=== PATIENT | male | born 1990 | race Hispanic/Latino ===

== ENCOUNTER 2017-03-30 19:34 | Emergency (ER) | payer SELFPAY ==
--- NOTE | 2017-03-30 23:06 | C.PDOC ---
History Of Present Illness 26 year old male is brought to the ED by EMS and [facility] escort for evaluation after he was found displaying bizarre public behavior after smoking PCP earlier today. Patient arrived to ED in handcuffs and has been cooperative with [facility]. Patient placed on 4 point restraints for his own safety and safety of staff. He denies suicidal/homicidal ideation and has no physical complaints at this time. Time Seen by Provider: 03/30/17 23:04 Chief Complaint (Nursing): Substance Abuse History Per: EMS History/Exam Limitations: no limitations Onset/Duration Of Symptoms: Hrs Current Symptoms Are (Timing): Still Present Suicide/Self Injury Attempted (Context): None Modifying Factor(s): Other (PCP) Associated Symptoms: Other (Bizarre behavior). denies: Depression, Suicidal Thoughts, Suicidal Plan Involuntary Hold By: None Recent travel outside of the [place]: No Past Medical History Reviewed: Historical Data, Nursing Documentation, Vital Signs Vital Signs: Last Vital Signs Temp 98.9 F 03/30/17 23:10 Pulse 81 03/30/17 23:10 Resp 20 03/30/17 23:10 BP 132/82 03/30/17 23:10 Pulse Ox 99 03/30/17 23:10 - Medical History PMH: No Chronic Diseases Surgical History: No Surg Hx - [facility] Procedures APPLICATION OF SPLINT (05/27/14) Family History: States: Unknown Family Hx - Social History Hx Tobacco Use: Yes Hx Alcohol Use: No Hx Substance Use: No - Immunization History Hx Tetanus Toxoid Vaccination: Yes ("last year") Hx Influenza Vaccination: Yes Hx Pneumococcal Vaccination: No Review Of Systems Constitutional: Negative for: Fever, Chills Respiratory: Negative for: Shortness of Breath, Wheezing Gastrointestinal: Negative for: Nausea, Vomiting, Diarrhea Skin: Negative for: Bruising Psych: Positive for: Other (Bizarre behavior) Physical Exam - Physical Exam Appears: Non-toxic, No Acute Distress Skin: Normal Color, Warm, Dry Head: Atraumatic, Normacephalic Eye(s): bilateral: Normal Inspection (Mid sized pupils), PERRL, EOMI Oral Mucosa: Moist Chest: Symmetrical, No Tenderness Cardiovascular: Rhythm Regular Respiratory: Normal Breath Sounds, No Rales, No Rhonchi, No Wheezing Gastrointestinal/Abdominal: Soft, No Tenderness Neurological/Psych: Other (Arousable to touch and verbal stimuli) ED Course And Treatment Reevaluation Time: 22:30 Reassessment Condition: Improved (mother came to retrieve and take home safely. admits to daily PCP abuse. Mother acknowledges she is enabling this poor behavior by taking him in with daily PCP abuse.) Medical Decision Making Medical Decision Making: continuous PCP abuse Disposition Doctor Will See Patient In The: Office Counseled Patient/Family Regarding: Studies Performed, Diagnosis - Disposition Referrals: Alcoholics Anonymous [Outside] [facility] [Outside] [place] [facility] [Outside] Disposition: HOME/ ROUTINE Disposition Time: 23:05 Condition: GOOD Additional Instructions: seek detox and psych eval for your PCP abuse Stop PCP abuse Seek counseling and a social [place] where substance abuse is not prevalent. Instructions: Acute Delirium (ED), Polysubstance Abuse (ED) Forms: [facility] (Burkinan) - Clinical Impression Clinical Impression: Drug abuse - Scribe Statement The provider has reviewed the documentation as recorded by the Scribe Jos Beauchamp All medical record entries made by the Scribe were at my direction and personally dictated by me. I have reviewed the chart and agree that the record accurately reflects my personal performance of the history, physical exam, medical decision making, and the department course for this patient. I have also personally directed, reviewed, and agree with the discharge instructions and disposition.
[2017-03-30 23:10] VITALS: BP 132/82; PULSE 81; RESP 20; TEMP 98.9; O2SAT 99
== END 2017-03-30 23:23 | disposition home or self-care (01) ==
LOC: C.ER 19:34
DX: F19.10 Other psychoactive substance abuse, uncomplicated (principal)

== ENCOUNTER 2017-07-14 20:08 | Emergency (ER) | payer SELFPAY ==
[2017-07-14 20:14] VITALS: O2SAT 99
[2017-07-14 20:26] VITALS: BP 123/89; PULSE 111; RESP 16; TEMP 97.3
--- NOTE | 2017-07-14 20:38 | C.PDOC ---
History Of Present Illness Patient brought to ER by EMS after patient was found exhibiting bizarre behavior ; patient was noted to be sitting in neighbor's backyard and was non-compliant with police orders. Patient admits to "smoking sip" and currently is cooperative in ER. He has no medical complaints. Time Seen by Provider: 07/14/17 20:37 Chief Complaint (Nursing): Substance Abuse History Per: EMS History/Exam Limitations: no limitations Onset/Duration Of Symptoms: Hrs Past Medical History Reviewed: Historical Data, Nursing Documentation, Vital Signs Vital Signs: Last Vital Signs Temp 97.3 F L 07/14/17 20:24 Pulse 111 H 07/14/17 20:24 Resp 16 07/14/17 20:24 BP 123/89 07/14/17 20:24 Pulse Ox 99 07/14/17 20:38 - Medical History PMH: No Chronic Diseases Surgical History: No Surg Hx - [facility] Procedures APPLICATION OF SPLINT (05/27/14) Family History: States: Unknown Family Hx - Social History Hx Tobacco Use: Yes Hx Alcohol Use: No Hx Substance Use: No - Immunization History Hx Tetanus Toxoid Vaccination: Yes ("last year") Hx Influenza Vaccination: Yes Hx Pneumococcal Vaccination: No Review Of Systems Except As Marked, All Systems Reviewed And Found Negative. Neurological: Positive for: Other (bizarre behaviour) Physical Exam - Physical Exam Appears: Non-toxic Skin: Normal Color Head: Normacephalic Eye(s): bilateral: Normal Inspection Neck: Normal ROM, Supple Chest: Symmetrical Cardiovascular: Rhythm Regular Respiratory: Normal Breath Sounds Neurological/Psych: Oriented x3, Normal Speech, Normal Cognition, Other (flat affect, pleasant in ER) Gait: Steady ED Course And Treatment O2 Sat by Pulse Oximetry: 99 (RA) Pulse Ox Interpretation: Normal Medical Decision Making Medical Decision Making: smoking Dip stable, comfortable, cooperative, no acute issues, steady gait, safe for d/c. Disposition Doctor Will See Patient In The: Office Counseled Patient/Family Regarding: Studies Performed, Diagnosis - Disposition Referrals: Alcoholics Anonymous [Outside] [place] [facility] [Outside] [facility] [Outside] [facility] [Outside] Disposition: HOME/ ROUTINE Disposition Time: 20:38 Condition: GOOD Additional Instructions: avoid substance abuse seek outpatient follow up as offered See below. Instructions: Drug Abuse and Drug Addiction (DC), Drug Abuse Treatment Forms: [facility] (Belarusian) - Clinical Impression Clinical Impression: Substance abuse - Scribe Statement The provider has reviewed the documentation as recorded by the Scribe (Sussy Nolan) Provider Attestation: All medical record entries made by the Scribe were at my direction and personally dictated by me. I have reviewed the chart and agree that the record accurately reflects my personal performance of the history, physical exam, medical decision making, and the department course for this patient. I have also personally directed, reviewed, and agree with the discharge instructions and disposition.
== END 2017-07-14 21:14 | disposition home or self-care (01) ==
LOC: C.ER 20:08
DX: F19.10 Other psychoactive substance abuse, uncomplicated (principal)

== ENCOUNTER 2017-09-12 12:43 | Emergency (ER) | payer MEDICAID ==
[2017-09-12 12:54] VITALS: BP 144/92; PULSE 82; RESP 18; TEMP 98.2; O2SAT 100
[2017-09-12 12:58] VITALS: BMI 23.1
--- NOTE | 2017-09-12 13:17 | C.PDOC ---
History Of Present Illness 27 y/o male brought to ED by EMS for bizarre behavior, admits to smoking marijuana prior to arrival. Patient was previously evaluated at [place] on 08/22 for same and discharged. Patient denies chest pain, sob, palpitations, nausea, vomiting or any other complaints at this time. Time Seen by Provider: 09/12/17 13:14 Chief Complaint (Nursing): Altered Mental Status History Per: Patient History/Exam Limitations: None Onset/Duration Of Symptoms: Hrs Current Symptoms Are (Timing): Still Present Past Medical History Reviewed: Historical Data, Nursing Documentation, Vital Signs Vital Signs: Last Vital Signs Temp 98.2 F 09/12/17 12:48 Pulse 82 09/12/17 12:48 Resp 18 09/12/17 12:48 BP 144/92 H 09/12/17 12:48 Pulse Ox 100 09/12/17 14:02 - Medical History PMH: No Chronic Diseases Surgical History: No Surg Hx - [facility] Procedures APPLICATION OF SPLINT (05/27/14) Family History: States: No Known Family Hx - Social History Hx Tobacco Use: Yes Hx Alcohol Use: No Hx Substance Use: No (pt denies substance abuse) - Immunization History Hx Tetanus Toxoid Vaccination: Yes ("last year") Hx Influenza Vaccination: Yes Hx Pneumococcal Vaccination: No Review Of Systems Constitutional: Negative for: Fever, Chills Eyes: Negative for: Vision Change Cardiovascular: Negative for: Chest Pain Respiratory: Negative for: Shortness of Breath Skin: Negative for: Rash Psych: Negative for: Anxiety, Psychosis Physical Exam - Physical Exam Appears: Non-toxic, No Acute Distress Skin: Warm, Dry, No Rash Head: Atraumatic, Normacephalic Eye(s): bilateral: Normal Inspection Oral Mucosa: Moist Neck: Normal ROM, Supple Cardiovascular: Rhythm Regular Respiratory: Normal Breath Sounds, No Rales, No Rhonchi, No Wheezing Gastrointestinal/Abdominal: Soft, No Tenderness, No Guarding, No Rebound Extremity: Normal ROM, Capillary Refill (<2 seconds) Neurological/Psych: Oriented x3, Normal Speech, Normal Cognition ED Course And Treatment O2 Sat by Pulse Oximetry: 100 (RA) Pulse Ox Interpretation: Normal Medical Decision Making Medical Decision Making: persistent cannabis abuse no acute issues safe for d/c Disposition Doctor Will See Patient In The: Office Counseled Patient/Family Regarding: Studies Performed, Diagnosis - Disposition Referrals: Alcoholics Anonymous [Outside] [place] [facility] [Outside] [facility] [Outside] [facility] [employer] [facility] [Outside] Disposition: HOME/ ROUTINE Disposition Time: 13:17 Condition: GOOD Additional Instructions: seek substance abuse programs as needed Seek outpatient psych follow-up as needed STOP SUBSTANCE ABUSE Instructions: Drug Abuse and Drug Addiction (DC), Drug Abuse Treatment Forms: [facility] (Mohawk) - Clinical Impression Clinical Impression: Substance abuse - Scribe Statement The provider has reviewed the documentation as recorded by the Scribamanda Swan All medical record entries made by the Scribe were at my direction and personally dictated by me. I have reviewed the chart and agree that the record accurately reflects my personal performance of the history, physical exam, medical decision making, and the department course for this patient. I have also personally directed, reviewed, and agree with the discharge instructions and disposition.
== END 2017-09-12 13:36 | disposition home or self-care (01) ==
LOC: C.ER 12:43
DX: F12.10 Cannabis abuse, uncomplicated (principal)

== ENCOUNTER 2017-09-17 10:54 | Emergency (ER) | payer MEDICAID ==
[2017-09-17 10:54] VITALS: BMI 23.1
[2017-09-17 11:02] VITALS: BP 144/84; PULSE 78; RESP 18; TEMP 98.2; O2SAT 98
--- NOTE | 2017-09-17 11:36 | C.PDOC ---
History Of Present Illness 27 year old male is brought to the ED by ambulance for evaluation of possible drug use and bizarre behavior. As per EMS, patient's mother called police with the complaint that he was "acting up." Patient admits to history of PCP use. He denies suicidal/homicidal ideation, any other drug, and has no other complaints at this time. Time Seen by Provider: 09/17/17 11:01 Chief Complaint (Nursing): Substance Abuse History Per: Patient, EMS History/Exam Limitations: no limitations Onset/Duration Of Symptoms: Hrs Current Symptoms Are (Timing): Still Present Suicide/Self Injury Attempted (Context): None Modifying Factor(s): Other (PCP ) Associated Symptoms: denies: Suicidal Thoughts, Suicidal Plan Involuntary Hold By: None Recent travel outside of the [place]: No Additional History Per: Patient, EMS, Law Enforcement Past Medical History Reviewed: Historical Data, Nursing Documentation, Vital Signs Vital Signs: Last Vital Signs Temp 98.2 F 09/17/17 11:01 Pulse 78 09/17/17 11:01 Resp 18 09/17/17 11:40 BP 144/84 09/17/17 11:01 Pulse Ox 98 09/17/17 15:10 - Medical History PMH: No Chronic Diseases Denies: Chronic Kidney Disease Surgical History: No Surg Hx - [facility] Procedures APPLICATION OF SPLINT (05/27/14) Family History: States: Unknown Family Hx - Social History Hx Tobacco Use: Yes Hx Alcohol Use: No Hx Substance Use: No (pt denies substance abuse) - Immunization History Hx Tetanus Toxoid Vaccination: Yes ("last year") Hx Influenza Vaccination: Yes Hx Pneumococcal Vaccination: No Review Of Systems Psych: Positive for: Other (drug use, bizarre behavior ). Negative for: Suicidal ideation Physical Exam - Physical Exam Appears: Non-toxic, No Acute Distress Skin: Normal Color, Warm, Dry Head: Atraumatic, Normacephalic Eye(s): bilateral: Other (pinpoint pupils) Oral Mucosa: Moist Neck: Supple Chest: Symmetrical, No Deformity, No Tenderness Cardiovascular: Rhythm Regular, No Murmur Respiratory: Normal Breath Sounds, No Rales, No Rhonchi, No Wheezing Extremity: Normal ROM, Capillary Refill (less than 2 seconds ) Neurological/Psych: Oriented x3, Normal Speech, Normal Cognition, Other (calm, cooperative, maintaining eye contact ) ED Course And Treatment O2 Sat by Pulse Oximetry: 98 (on RA) Pulse Ox Interpretation: Normal Medical Decision Making Medical Decision Making: Impression: 27 year old male for evaluation of drug use and bizarre behavior Progress: Spoke with patient's mother who called the ED to inquire about a detox program on behalf of the patient. Explained to mother that there is a waiting list for detox. On re-exam, patient is resting comfortably, showing no signs of distress and is stable for discharge. Patient is provided with information for further detox inquiries. Disposition Counseled Patient/Family Regarding: Diagnosis, Need For Followup - Disposition Disposition: HOME/ ROUTINE Disposition Time: 11:35 Condition: STABLE Instructions: Drug Abuse and Drug Addiction (DC) Forms: [facility] (Iranian) - POA Present On Arrival: None - Clinical Impression Clinical Impression: Substance abuse - PA / TAFFY PULLER / Resident Statement MD/DO has reviewed & agrees with the documentation as recorded. - Scribe Statement The provider has reviewed the documentation as recorded by the Scribe (Consuelo Will) All medical record entries made by the Scribe were at my direction and personally dictated by me. I have reviewed the chart and agree that the record accurately reflects my personal performance of the history, physical exam, medical decision making, and the department course for this patient. I have also personally directed, reviewed, and agree with the discharge instructions and disposition.
== END 2017-09-17 11:42 | disposition home or self-care (01) ==
LOC: C.ER 10:54
DX: F19.10 Other psychoactive substance abuse, uncomplicated (principal)

== ENCOUNTER 2017-11-04 02:00 | Emergency (ER) | payer MEDICAID ==
[2017-11-04 02:01] VITALS: BMI 23.1
[2017-11-04 02:12] VITALS: BP 135/76; PULSE 81; RESP 16; TEMP 98.3; O2SAT 97
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
== END 2017-11-04 03:17 | disposition home or self-care (01) ==
LOC: C.ER 02:00
DX: Z00.00 Encounter for general adult medical examination without abnormal findings (principal); Z72.0 Tobacco use

== ENCOUNTER 2017-11-28 10:18 | Emergency (ER) | payer MEDICAID ==
[2017-11-28 10:19] VITALS: BMI 23.1
[2017-11-28 10:28] VITALS: BP 140/92; PULSE 108; RESP 20; TEMP 98.4; O2SAT 100
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
== END 2017-11-28 11:02 | disposition home or self-care (01) ==
LOC: C.ER 10:18
DX: H57.8 Other specified disorders of eye and adnexa (principal)

== ENCOUNTER 2017-12-08 20:11 | Emergency (ER) | payer MEDICAID ==
[2017-12-08 20:11] VITALS: BMI 23.1
[2017-12-08 20:20] VITALS: BP 141/93; PULSE 102; RESP 20; TEMP 99.1; O2SAT 99
--- NOTE | 2017-12-08 20:34 | C.PDOC ---
History Of Present Illness 27 year old male is brought to the ED by ambulance for evaluation of bizarre public behavior noted earlier today. Patient has had many prior evaluations concerning substance abuse. Patient admits to occasional PCP use. He denies suicidal/homicidal ideation and has no physical complaints at this time. Chief Complaint (Nursing): Substance Abuse History Per: Patient, EMS History/Exam Limitations: no limitations Onset/Duration Of Symptoms: Hrs Current Symptoms Are (Timing): Still Present Suicide/Self Injury Attempted (Context): None Associated Symptoms: denies: Suicidal Thoughts, Suicidal Plan Involuntary Hold By: None Additional History Per: Patient Past Medical History Reviewed: Historical Data, Nursing Documentation, Vital Signs Vital Signs: Last Vital Signs Temp 99.1 F 12/08/17 20:15 Pulse 102 H 12/08/17 20:15 Resp 20 12/08/17 20:15 BP 141/93 H 12/08/17 20:15 Pulse Ox 99 12/08/17 21:45 - Medical History PMH: No Chronic Diseases Denies: Chronic Kidney Disease Surgical History: No Surg Hx - [facility] Procedures APPLICATION OF SPLINT (05/27/14) Family History: States: Unknown Family Hx - Social History Hx Tobacco Use: Yes Hx Alcohol Use: No Hx Substance Use: No (pt denies substance abuse) - Immunization History Hx Tetanus Toxoid Vaccination: No Hx Influenza Vaccination: No Hx Pneumococcal Vaccination: No Review Of Systems Psych: Positive for: Other (bizarre behavior ). Negative for: Suicidal ideation Physical Exam - Physical Exam Appears: Non-toxic, No Acute Distress Skin: Normal Color, Warm, Dry Head: Atraumatic, Normacephalic Eye(s): bilateral: Normal Inspection Oral Mucosa: Moist Neck: Supple Chest: Symmetrical, No Deformity Cardiovascular: Rhythm Regular Respiratory: Normal Breath Sounds, No Accessory Muscle Use Extremity: Normal ROM Neurological/Psych: Other (calm, cooperative, bizarre affect ) Gait: Steady ED Course And Treatment O2 Sat by Pulse Oximetry: 99 (on RA) Pulse Ox Interpretation: Normal Medical Decision Making Medical Decision Making: typical substance abuse stable gait answered all questions correctly no harm to self or others. wanted to be d/c and no need to restrain Disposition Doctor Will See Patient In The: Office Counseled Patient/Family Regarding: Studies Performed, Diagnosis - Disposition Referrals: [facility] [Outside] [place] [facility] [Outside] [facility] [Outside] [facility] [Outside] Disposition: HOME/ ROUTINE Disposition Time: 20:15 Condition: GOOD Additional Instructions: avoid substance abuse Seek outpatient counseling Instructions: Drug Abuse and Drug Addiction (DC), Drug Abuse Treatment Forms: [facility] (Moldovan) - Clinical Impression Clinical Impression: Drug abuse - Scribe Statement The provider has reviewed the documentation as recorded by the Scribe (Consuelo Will) Provider Attestation: All medical record entries made by the Scribe were at my direction and personally dictated by me. I have reviewed the chart and agree that the record accurately reflects my personal performance of the history, physical exam, medical decision making, and the department course for this patient. I have also personally directed, reviewed, and agree with the discharge instructions and disposition.
== END 2017-12-08 20:25 | disposition home or self-care (01) ==
LOC: C.ER 20:11
DX: F19.10 Other psychoactive substance abuse, uncomplicated (principal)

== ENCOUNTER 2017-12-26 15:39 | Emergency (ER) | payer MEDICAID ==
[2017-12-26 15:40] VITALS: BMI 23.1
[2017-12-26 17:06] LABS: OPIATES, UR NEGATIVE (NEGATIVE); PHENCYCLIDINE, UR NEGATIVE (NEGATIVE)
[2017-12-26 17:07] LABS: BARBITURATES, UR NEGATIVE (NEGATIVE); BENZODIAZEPINES, UR NEGATIVE (NEGATIVE)
[2017-12-26 17:38] VITALS: BP 140/79; PULSE 92; RESP 18; TEMP 98.5; O2SAT 100
--- NOTE | 2017-12-26 18:08 | C.PDOC ---
History Of Present Illness 27-year-old male, presents to the emergency department accompanied by PD and EMS , with complaints of erratic behavior. Pt has a Hx of drug abuse, denies any drug use at this time. Denies SI/HI, or any other associated symptoms. No other complaints at this time. Chief Complaint (Nursing): Substance Abuse History Per: Patient, EMS (PD) History/Exam Limitations: no limitations Past Medical History Reviewed: Historical Data, Nursing Documentation, Vital Signs Vital Signs: Last Vital Signs Temp 98.5 F 12/26/17 17:37 Pulse 92 H 12/26/17 17:37 Resp 18 12/26/17 17:37 BP 140/79 12/26/17 17:37 Pulse Ox 100 12/26/17 18:24 - Medical History PMH: Denies: Chronic Kidney Disease - [facility] Procedures APPLICATION OF SPLINT (05/27/14) Family History: States: No Known Family Hx - Social History Hx Tobacco Use: Yes Hx Alcohol Use: No Hx Substance Use: No ("pt denies") - Immunization History Hx Tetanus Toxoid Vaccination: No Hx Influenza Vaccination: No Hx Pneumococcal Vaccination: No Review Of Systems Constitutional: Negative for: Fever Cardiovascular: Negative for: Chest Pain Respiratory: Negative for: Shortness of Breath Gastrointestinal: Negative for: Vomiting Musculoskeletal: Negative for: Back Pain Neurological: Negative for: Weakness, Numbness, Headache, Dizziness Physical Exam - Physical Exam Appears: Non-toxic, No Acute Distress Skin: Normal Color, Warm, Dry, No Rash Head: Atraumatic, Normacephalic Eye(s): bilateral: Normal Inspection, PERRL, EOMI Nose: Normal Oral Mucosa: Moist Lips: Normal Appearing Neck: Normal ROM Cardiovascular: Rhythm Regular, No Murmur Respiratory: Normal Breath Sounds, No Accessory Muscle Use Gastrointestinal/Abdominal: Normal Exam Back: Normal Inspection Extremity: Normal ROM, No Deformity, No Swelling Neurological/Psych: Oriented x3, Normal Speech ED Course And Treatment O2 Sat by Pulse Oximetry: 100 Pulse Ox Interpretation: Normal (RA) Disposition - Disposition Disposition: HOME/ ROUTINE Disposition Time: 17:10 Condition: GOOD Additional Instructions: VERONA ALVARADO, thank you for letting us take care of you today. The emergency medical care you received today was directed at your acute symptoms. If you were prescribed any medication, please fill it and take as directed. It may take several days for your symptoms to resolve. Return to the Emergency Department if your symptoms worsen, do not improve, or if you have any other problems. Please contact your doctor or call one of the physicians/clinics you have been referred to that are listed on the Patient Visit Information form that is included in your discharge packet. Bring any paperwork you were given at discharge with you along with any medications you are taking to your follow up visit. Our treatment cannot replace ongoing medical care by a primary care provider outside of the emergency department. Thank you for allowing the [facility] team to be part of your care today. Follow up with your primary care doctor in 2-3 days for further management. Instructions: Marijuana Use and Addiction (DC) Forms: [employer] (Chilean) - Clinical Impression Clinical Impression: Marijuana smoker - Scribe Statement The provider has reviewed the documentation as recorded by the Scribe (Kurtis Lopez) Provider Attestation: All medical record entries made by the Scribe were at my direction and personally dictated by me. I have reviewed the chart and agree that the record accurately reflects my personal performance of the history, physical exam, medical decision making, and the department course for this patient. I have also personally directed, reviewed, and agree with the discharge instructions and disposition.
== END 2017-12-26 17:45 | disposition home or self-care (01) ==
LOC: C.ER 15:39
DX: F12.90 Cannabis use, unspecified, uncomplicated (principal); Z72.0 Tobacco use

== ENCOUNTER 2017-12-31 23:30 | Emergency (ER) | payer MEDICAID ==
[2017-12-31 23:31] VITALS: BMI 23.1
[2017-12-31 23:59] VITALS: BP 147/93; PULSE 89; RESP 20; TEMP 98.2; O2SAT 99
--- NOTE | 2018-01-01 00:07 | C.PDOC ---
History Of Present Illness 27 year old male is brought to the ED for evaluation. Patient was drinking today , however patient is clinically sober, ambulating without difficulty in the ED. Patient states he wants to go home and refuses to be examined. On observation patient moves all extremities, no signs of trauma. Patient denies SI/HI, hallucinations, injury, fall, trauma. Time Seen by Provider: 12/31/17 23:48 Chief Complaint (Nursing): Substance Abuse History Per: Patient History/Exam Limitations: no limitations Onset/Duration Of Symptoms: Hrs Current Symptoms Are (Timing): Still Present Suicide/Self Injury Attempted (Context): None Modifying Factor(s): Alcohol Associated Symptoms: denies: Depression, Suicidal Thoughts, Suicidal Plan Involuntary Hold By: None Recent travel outside of the [place]: No Additional History Per: Patient Past Medical History Reviewed: Historical Data, Nursing Documentation, Vital Signs Vital Signs: Last Vital Signs Temp 98.2 F 12/31/17 23:54 Pulse 89 12/31/17 23:54 Resp 20 12/31/17 23:54 BP 147/93 H 12/31/17 23:54 Pulse Ox 99 01/01/18 00:10 - Medical History PMH: No Chronic Diseases Denies: Chronic Kidney Disease Surgical History: No Surg Hx - [facility] Procedures APPLICATION OF SPLINT (05/27/14) Family History: States: Unknown Family Hx - Social History Hx Tobacco Use: Yes Hx Alcohol Use: No (denies) Hx Substance Use: No ("pt denies") - Immunization History Hx Tetanus Toxoid Vaccination: No Hx Influenza Vaccination: No Hx Pneumococcal Vaccination: No Review Of Systems Constitutional: Negative for: Fever, Chills Cardiovascular: Negative for: Chest Pain, Palpitations Respiratory: Negative for: Shortness of Breath Gastrointestinal: Negative for: Nausea, Vomiting Skin: Negative for: Rash Psych: Negative for: Depression, Suicidal ideation Physical Exam - Physical Exam Appears: Non-toxic, No Acute Distress Skin: Normal Color, Warm, Dry Head: Atraumatic, Normacephalic Extremity: Normal ROM, No Tenderness, No Swelling Neurological/Psych: Oriented x3, Normal Speech Gait: Steady Additional Physical Exam Comments: Patient refused to be examined ED Course And Treatment O2 Sat by Pulse Oximetry: 99 (ON RA) Pulse Ox Interpretation: Normal Progress Note: Patient eloped from the ED, patient was clinically sober and ambulating with no difficulty. Disposition Counseled Patient/Family Regarding: Diagnosis, Need For Followup - Disposition Referrals: [facility] [Outside] Disposition: ELOPEMENT - ER ONLY Disposition Time: 16:00 Condition: FAIR Instructions: Alcohol Abuse and Alcoholism (DC) Forms: [employer] (Spanish) - Clinical Impression Clinical Impression: Substance abuse - Scribe Statement The provider has reviewed the documentation as recorded by the Scribe Cody Aponte All medical record entries made by the Scribe were at my direction and personally dictated by me. I have reviewed the chart and agree that the record accurately reflects my personal performance of the history, physical exam, medical decision making, and the department course for this patient. I have also personally directed, reviewed, and agree with the discharge instructions and disposition.
== END 2018-01-01 00:08 | disposition left against medical advice (07) ==
LOC: C.ER 23:30
DX: F19.10 Other psychoactive substance abuse, uncomplicated (principal)

== ENCOUNTER 2018-09-24 20:24 | Emergency (ER) | payer MEDICAID, OTHER ==
[2018-09-24 20:25] VITALS: BMI 23.7
[2018-09-24 20:34] VITALS: BP 112/69; PULSE 72; TEMP 97.8; O2SAT 95
--- NOTE | 2018-09-24 20:52 | C.PDOC ---
Time Seen by Provider: 09/24/18 20:36 Chief Complaint (Nursing): Eye Problem Past Medical History Vital Signs: Last Vital Signs Temp 97.8 F 09/24/18 20:29 Pulse 72 09/24/18 20:29 Resp 18 09/24/18 20:29 BP 112/69 09/24/18 20:29 Pulse Ox 95 09/24/18 20:29 Primary Care Provider: FAMILY PROVIDER,NO - Medical History PMH: Denies: Diabetes, Hepatitis, HIV, HTN, Chronic Kidney Disease, Seizures, Sexually Transmitted Disease - [facility] Procedures APPLICATION OF SPLINT (05/27/14) Family History: States: Unknown Family Hx - Social History Hx Tobacco Use: Yes Hx Alcohol Use: No (denies) Hx Substance Use: No ("pt denies") - Immunization History Hx Tetanus Toxoid Vaccination: No Hx Influenza Vaccination: No Hx Pneumococcal Vaccination: No ED Course And Treatment O2 Sat by Pulse Oximetry: 95 Disposition - Disposition
[2018-09-24] MEDS ORDERED: Fluorescein 1 mg Ophthalmic Strip ONE (21:00)
--- NOTE | 2018-09-24 21:23 | C.PDOC ---
History Of Present Illness 28 year old male presents complaining of foreign body sensation to the right eye since last night. Patient reports he has been rubbing it today. He reports associated tearing, redness, and notes he is unable to fully open the eye due to swelling. Denies headache, dizziness, or photophobia. Time Seen by Provider: 09/24/18 20:36 Chief Complaint (Nursing): Eye Problem History Per: Patient History/Exam Limitations: no limitations Onset/Duration Of Symptoms: Other (Last night) Current Symptoms Are (Timing): Still Present Injury To Eye?: No Wears Contact Lens?: No Associated Symptoms: Swelling, FB Sensation, Other (Tearing, Redness) Past Medical History Reviewed: Historical Data, Nursing Documentation, Vital Signs Vital Signs: Last Vital Signs Temp 97.8 F 09/24/18 20:29 Pulse 72 09/24/18 20:29 Resp 18 09/24/18 20:29 BP 112/69 09/24/18 20:29 Pulse Ox 95 09/24/18 21:07 Primary Care Provider: FAMILY PROVIDER,NO - Medical History PMH: Denies: Diabetes, Hepatitis, HIV, HTN, Chronic Kidney Disease, Seizures, Sexually Transmitted Disease - [facility] Procedures APPLICATION OF SPLINT (05/27/14) Family History: States: Unknown Family Hx - Social History Hx Tobacco Use: Yes Hx Alcohol Use: No (denies) Hx Substance Use: No ("pt denies") - Immunization History Hx Tetanus Toxoid Vaccination: No Hx Influenza Vaccination: No Hx Pneumococcal Vaccination: No Review Of Systems Constitutional: Negative for: Fever Eyes: Positive for: Redness, Other (Foreign body sensation,Tearing, Swelling) Neurological: Negative for: Headache, Dizziness Physical Exam - Physical Exam Appears: Non-toxic Skin: Normal Color, Warm Head: Atraumatic, Normacephalic Eye(s): bilateral: PERRL, EOMI, right: Other (Conjunctival erythema and edema, greater to the lateral aspect. Thin crescent like corneal abrasion to nasal aspect seen with fluorescein test, visual acuity normal.), left: Normal Inspection (visual acuity normal) Neurological/Psych: Oriented x3, Normal Speech ED Course And Treatment O2 Sat by Pulse Oximetry: 95 (Room air) Pulse Ox Interpretation: Normal Progress Note: Patient is resting comfortably in no acute distress, vitals are stable, will discharge home with Rx and instructions to follow up with ophthalmology tomorrow. Disposition Counseled Patient/Family Regarding: Diagnosis, Need For Followup, Rx Given - Disposition Referrals: Griffin Roca MD [Staff Provider] - Disposition: HOME/ ROUTINE Disposition Time: 21:20 Condition: STABLE Additional Instructions: Please follow up with Eye doctor Take medications as directed Apply cold compress to eyes Return to ER if worse Prescriptions: Cetirizine HCl [Zyrtec] 10 mg PO DAILY #14 capsule Tobramycin 0.3% [Tobrex 0.3% Opth Soln] 1 drop OD TID #1 bottle Instructions: Corneal Abrasion (DC), Conjunctivitis (Noninfectious Pinkeye) (DC) Forms: [employer] (Uzbek), [employer] (Lao) - Clinical Impression Clinical Impression: Corneal abrasion, right, Allergic conjunctivitis - PA / [employer] / Resident Statement MD/DO has reviewed & agrees with the documentation as recorded. - Scribe Statement The provider has reviewed the documentation as recorded by the Sybilibamanda Beauchamp All medical record entries made by the Sybilibamanda were at my direction and personally dictated by me. I have reviewed the chart and agree that the record accurately reflects my personal performance of the history, physical exam, medical decision making, and the department course for this patient. I have also personally directed, reviewed, and agree with the discharge instructions and disposition.
[2018-09-24 21:35] VITALS: RESP 20
== END 2018-09-24 21:34 | disposition home or self-care (01) ==
LOC: C.ER 20:24
DX: S05.01XA Injury of conjunctiva and corneal abrasion without foreign body, right eye, initial encounter (principal); H10.11 Acute atopic conjunctivitis, right eye; Z72.0 Tobacco use